=== PATIENT | female | born 1960 | race Asian ===

== ENCOUNTER 2018-02-03 13:11 | Emergency (ER) | payer MEDICAID ==
[~2018-02-03] VITALS: Ht 162.6 cm; Wt 70.0 kg
[~2018-02-03 13:11] MED LIST: CIPR-259 PO; CYCL-1 PO; FERGLU300T PO; GABA300C PO; ONDA4TAB6 PO; depo-provera PO
[2018-02-03] MEDS ORDERED: normal saline 1000ML IV soln IVB ONE (13:30)
[2018-02-03] MEDS ORDERED: MORPHINE 2MG in 2ml NS syringe IV PRN (13:30)
[2018-02-03] MEDS ORDERED: ketorolac trometh. 30mg/ml inj. IV ONE (13:30)
[2018-02-03] MEDS ORDERED: ondansetron/PF 4mg/2ml inj IV ONE (13:30)
[2018-02-03 13:51] LABS: BASOPHILS % (AUTO) 0.2 % (0-1); EOSINOPHILS # (AUTO) 0.2 X10'3 (0-0.9); EOSINOPHILS % (AUTO) 1.9 % (0-6); HEMATOCRIT 36.3 % (35.0-45.0); HEMOGLOBIN 12.9 g/dl (12.0-16.0); LYMPHOCYTES # (AUTO) 2.4 X10'3 (1.1-4.8); LYMPHOCYTES % (AUTO) 21.2 % (21-51); MEAN CORPUSCULAR HEMOGLOBIN 29.9 PG (27.0-31.0); MEAN CORPUSCULAR HGB CONC 35.6 % (33.0-36.5); MEAN CORPUSCULAR VOLUME 84.1 FL (78-98); MEAN PLATELET VOLUME 7.2 FL (7.4-10.4); MONOCYTES # (AUTO) 0.9 X10'3 (0-0.9); MONOCYTES % (AUTO) 7.8 % (2-12); NEUTROPHILS # (AUTO) 7.7 X10'3 (1.8-7.7); NEUTROPHILS % (AUTO) 68.9 % (42-75); PLATELET COUNT 321 X10'3 (140-440); RED BLOOD COUNT 4.31 X10'6 (4.20-5.60); RED CELL DISTRIBUTION WIDTH 13.5 % (11.5-14.5); WHITE BLOOD COUNT 11.1 X10'3 (4.5-11.0)
[2018-02-03 14:07] LABS: ALANINE AMINOTRANSFERASE 31 U/L (12-78); ALBUMIN 3.7 G/DL (3.4-5.0); ALBUMIN/GLOBULIN RATIO 0.9 (1.1-1.5); ALKALINE PHOSPHATASE 111 IU/L (46-116); ANION GAP 12 (8-16); ASPARTATE AMINO TRANSFERASE 30 U/L (10-37); BILIRUBIN,TOTAL 0.5 MG/DL (0.1-1.0); BLOOD UREA NITROGEN 14 MG/DL (7-18); BUN/CREATININE RATIO 14.4 (6.6-38.0); CALCIUM 9.2 MG/DL (8.5-10.1); CHLORIDE 102 MMOL/L (99-107); CREATININE 0.97 MG/DL (0.40-0.90); GLUCOSE 157 MG/DL (70-104); LIPASE 262 U/L (73-393); POTASSIUM 3.1 MMOL/L (3.5-5.1); SODIUM 141 MMOL/L (135-145); TOTAL CARBON DIOXIDE 26.7 MMOL/L (24-32); TOTAL PROTEIN 7.9 G/DL (6.4-8.2); eGFR 59 ML/MIN
[2018-02-03 14:08] LABS: CLARITY,URINE SLIGHTLY CLOUDY (Clear); COLOR,URINE YELLOW (Yellow); GLUCOSE, URINE NEGATIVE (Neg); KETONES,URINE TRACE mg/dl (Neg); LEUKOCYTE ESTERASE ,URINE NEGATIVE (Neg); NITRITES, URINE NEGATIVE (Neg); OCCULT BLOOD,URINE NEGATIVE (Neg); PH,URINE 5.5 (4.8-8.0); PROTEIN,URINE NEGATIVE (Neg); UROBILINOGEN,URINE 0.2 E.U/dL (0.2-1.0)
[2018-02-03 14:10] LABS: UA COLLECTION TYPE CLN CATCH MIDSTREAM
[2018-02-03 14:15] LABS: BACTERIA,URINE FEW /HPF (Neg); MUCUS STRANDS MODERATE /LPF (Neg); RBC,URINE 0-2 /HPF (0-2); SQUAMOUS EPITHELIAL CELL,UR MODERATE /LPF (FEW); WBC,URINE 0-4 /HPF (0-4)
[2018-02-03] MEDS ORDERED: HYDR-569 PO (14:57)
[2018-02-03 16:11] VITALS: BP 145/84
[2018-02-04] MEDS ORDERED: CYCL-1 PO (15:45)
[2018-02-04] MEDS ORDERED: HYDR-3965 PO (15:45)
[2018-02-04] MEDS ORDERED: ONDA4TAB12 PO (15:48)
== END 2018-02-03 16:12 | disposition home or self-care (01) ==
LOC: ER 13:12
DX: R10.32 Left lower quadrant pain (principal); R11.0 Nausea; I10 Essential (primary) hypertension; E11.9 Type 2 diabetes mellitus without complications; Z90.710 Acquired absence of both cervix and uterus
CPT/HCPCS: 36415; 74176; 80053; 81001; 83690; 85025; 96361; 96374; 96375; 99285; J1885; J2274; J7030

== ENCOUNTER 2018-02-04 11:29 | Emergency (ER) | payer MEDICAID ==
[~2018-02-04] VITALS: Ht 154.9 cm; Wt 60.0 kg
[~2018-02-04 11:29] MED LIST changes: +HYDR-569 PO
[2018-02-04 12:01] LABS: CLARITY,URINE CLEAR (Clear); COLOR,URINE YELLOW (Yellow); GLUCOSE, URINE NEGATIVE (Neg); KETONES,URINE 15 mg/dl (Neg); LEUKOCYTE ESTERASE ,URINE NEGATIVE (Neg); NITRITES, URINE NEGATIVE (Neg); OCCULT BLOOD,URINE NEGATIVE (Neg); PH,URINE 5.5 (4.8-8.0); PROTEIN,URINE TRACE mg/dl (Neg); UROBILINOGEN,URINE 0.2 E.U/dL (0.2-1.0)
[2018-02-04 12:06] LABS: UA COLLECTION TYPE CLN CATCH MIDSTREAM
[2018-02-04 12:07] LABS: BACTERIA,URINE NONE SEEN /HPF (Neg); MUCUS STRANDS FEW /LPF (Neg); RBC,URINE NONE SEEN /HPF (0-2); SQUAMOUS EPITHELIAL CELL,UR FEW /LPF (FEW); WBC,URINE 0-4 /HPF (0-4)
[2018-02-04 12:10] LABS: BASOPHILS # (AUTO) 0.1 X10'3 (0-0.2); BASOPHILS % (AUTO) 0.4 % (0-1); EOSINOPHILS % (AUTO) 0.3 % (0-6); HEMATOCRIT 39.5 % (35.0-45.0); HEMOGLOBIN 13.4 g/dl (12.0-16.0); LYMPHOCYTES # (AUTO) 1.7 X10'3 (1.1-4.8); LYMPHOCYTES % (AUTO) 10.7 % (21-51); MEAN CORPUSCULAR HEMOGLOBIN 29.4 PG (27.0-31.0); MEAN CORPUSCULAR VOLUME 86.4 FL (78-98); MEAN PLATELET VOLUME 7.4 FL (7.4-10.4); MONOCYTES # (AUTO) 0.8 X10'3 (0-0.9); NEUTROPHILS # (AUTO) 13.1 X10'3 (1.8-7.7); NEUTROPHILS % (AUTO) 83.6 % (42-75); PLATELET COUNT 353 X10'3 (140-440); RED BLOOD COUNT 4.58 X10'6 (4.20-5.60); RED CELL DISTRIBUTION WIDTH 13.4 % (11.5-14.5); WHITE BLOOD COUNT 15.7 X10'3 (4.5-11.0)
[2018-02-04 12:24] LABS: ALANINE AMINOTRANSFERASE 34 U/L (12-78); ALBUMIN 3.5 G/DL (3.4-5.0); ALBUMIN/GLOBULIN RATIO 0.8 (1.1-1.5); ALKALINE PHOSPHATASE 105 IU/L (46-116); ANION GAP 10 (8-16); ASPARTATE AMINO TRANSFERASE 26 U/L (10-37); BILIRUBIN,TOTAL 0.7 MG/DL (0.1-1.0); BLOOD UREA NITROGEN 12 MG/DL (7-18); BUN/CREATININE RATIO 12.8 (6.6-38.0); CALCIUM 8.8 MG/DL (8.5-10.1); CHLORIDE 100 MMOL/L (99-107); CREATININE 0.94 MG/DL (0.40-0.90); GLUCOSE 224 MG/DL (70-104); POTASSIUM 3.4 MMOL/L (3.5-5.1); SODIUM 139 MMOL/L (135-145); TOTAL CARBON DIOXIDE 29.5 MMOL/L (24-32); eGFR 62 ML/MIN
[2018-02-04] MEDS ORDERED: cyclobenzaprine 10mg tablet PO ONE (14:45)
[2018-02-04] MEDS ORDERED: HYDROcodone/acetaminophen 10/325mg tab PO ONE (14:45)
[2018-02-04] MEDS ORDERED: ketorolac tromethamine 15mg/ml inj. IM ONE (14:45)
[2018-02-04] MEDS ORDERED: HYDR-3965 PO (15:45)
[2018-02-04] MEDS ORDERED: CYCL-1 PO (15:45)
[2018-02-04] MEDS ORDERED: ONDA4TAB12 PO (15:48)
[2018-02-04 16:02] VITALS: BP 111/74
[2018-02-04 16:31] LABS: OCCULT BLOOD STOOL POSITIVE (Neg)
== END 2018-02-04 16:36 | disposition home or self-care (01) ==
LOC: ER 11:29
DX: S29.019A Strain of muscle and tendon of unspecified wall of thorax, initial encounter (principal); I10 Essential (primary) hypertension; E11.9 Type 2 diabetes mellitus without complications; Z90.710 Acquired absence of both cervix and uterus
CPT/HCPCS: 36415; 71101; 80053; 81001; 82272; 85025; 85610; 96372; 99285; J1885

== ENCOUNTER 2021-01-24 13:35 | Inpatient (IN) | payer MEDICAID ==
[~2021-01-24] VITALS: Ht 154.9 cm; Wt 60.3 kg
[~2021-01-24 13:35] MED LIST changes: -FERGLU300T PO; +FERR324T23 PO; +HYDR-4383 PO; -HYDR-569 PO; +ONDA4TAB12 PO
[2021-01-24] MEDS ORDERED: normal saline 1000ML IV soln IVB ONE (14:10)
[2021-01-24] MEDS ORDERED: ondansetron/PF 4mg/2ml inj IV ONE (14:10)
[2021-01-24] MEDS ORDERED: morphine 4 MG/ML inj SYRINge IV ONE (14:10)
[2021-01-24 15:03] LABS: BASOPHILS % (AUTO) 0.2 % (0-1); EOSINOPHILS % (AUTO) 0.3 % (0-6); HEMATOCRIT 41.8 % (35.0-45.0); HEMOGLOBIN 13.9 g/dl (12.0-16.0); LYMPHOCYTES # (AUTO) 2.9 X10'3 (1.1-4.8); LYMPHOCYTES % (AUTO) 19.3 % (21-51); MEAN CORPUSCULAR HEMOGLOBIN 29.1 PG (27.0-31.0); MEAN CORPUSCULAR HGB CONC 33.2 g/dL (33.0-36.5); MEAN CORPUSCULAR VOLUME 87.5 FL (78-98); MONOCYTES # (AUTO) 1.4 X10'3 (0-0.9); MONOCYTES % (AUTO) 9.3 % (2-12); NEUTROPHILS # (AUTO) 10.6 X10'3 (1.8-7.7); NEUTROPHILS % (AUTO) 70.9 % (42-75); PLATELET COUNT 296 X10'3 (140-440); RED BLOOD COUNT 4.77 X10'6 (4.20-5.60); RED CELL DISTRIBUTION WIDTH 13.6 % (11.5-14.5); WHITE BLOOD COUNT 14.9 X10'3 (4.5-11.0)
[2021-01-24 15:21] LABS: ALANINE AMINOTRANSFERASE 34 U/L (12-78); ALBUMIN 3.9 G/DL (3.4-5.0); ALBUMIN/GLOBULIN RATIO 0.9 (1.1-1.5); ALKALINE PHOSPHATASE 131 IU/L (46-116); ANION GAP 14 (8-16); ASPARTATE AMINO TRANSFERASE 34 U/L (10-37); BILIRUBIN,TOTAL 0.3 MG/DL (0.1-1.0); BLOOD UREA NITROGEN 23 MG/DL (7-18); BUN/CREATININE RATIO 25.3 (6.6-38.0); CALCIUM 9.3 MG/DL (8.5-10.1); CHLORIDE 101 MMOL/L (99-107); CREATININE 0.91 MG/DL (0.40-0.90); GLUCOSE 191 MG/DL (70-104); SODIUM 142 MMOL/L (135-145); TOTAL CARBON DIOXIDE 26.7 MMOL/L (24-32); TOTAL PROTEIN 8.4 G/DL (6.4-8.2); eGFR 63 ML/MIN
[2021-01-24 15:24] LABS: POTASSIUM 2.4 MMOL/L (3.5-5.1)
[2021-01-24] MEDS ORDERED: potassium Cl 10 mEq/100mL bag IV SCH ×2 (15:30→17:55)
[2021-01-24] MEDS ORDERED: potassium Cl 20 mEq SR tablet PO ONE (15:30)
[2021-01-24] MEDS ORDERED: metroNIDAZOLE-Flagyl 500mg/NS 100 ML IV STA ×2 (15:44→17:13)
[2021-01-24] MEDS ORDERED: METR500T PO (15:53)
[2021-01-24] MEDS ORDERED: POTA-82 PO (15:53)
[2021-01-24 16:40] LABS: CLARITY,URINE CLEAR (Clear); COLOR,URINE STRAW (Yellow); GLUCOSE, URINE 250 mg/dl (Neg); KETONES,URINE TRACE mg/dl (Neg); LEUKOCYTE ESTERASE ,URINE NEGATIVE (Neg); NITRITES, URINE NEGATIVE (Neg); OCCULT BLOOD,URINE NEGATIVE (Neg); PROTEIN,URINE 30 mg/dl (Neg); UROBILINOGEN,URINE 0.2 E.U/dL (0.2-1.0)
[2021-01-24 16:45] LABS: UA COLLECTION TYPE CLN CATCH MIDSTREAM
[2021-01-24 16:47] LABS: BACTERIA,URINE NONE SEEN /HPF (Neg); COARSE GRANULAR CAST 0-3 /LPF (NEGATIVE); MUCUS STRANDS NONE SEEN /LPF (Neg); RBC,URINE NONE SEEN /HPF (0-2); SQUAMOUS EPITHELIAL CELL,UR NONE SEEN /LPF (FEW); WBC,URINE 0-4 /HPF (0-4)
[2021-01-24] MEDS ORDERED: hydrALAZINE 20mg/ml inj. IV ONE (17:30)
--- NOTE | 2021-01-24 17:42 | NUR ---
HIRAM MARCOS AND NOW DR LOPEZ IN ROOM
--- NOTE | 2021-01-24 17:54 | NUR ---
CALLED PHARMACY TO RETIME IV POTASSIUM IN ORDER TO BE ABLE TO GIVE IT
[2021-01-24] MEDS ORDERED: potassium Cl 40MEQ/1/2NS 520ml 520 ML IV PRN ×2 (18:00)
[2021-01-24] MEDS ORDERED: hydrALAZINE 20mg/ml inj. IV PRN (18:00)
[2021-01-24] MEDS ORDERED: magnesium hydroxide 30ml (MOM) UD suspension PO PRN (18:00)
[2021-01-24] MEDS ORDERED: acetaminophen 325mg tablet PO PRN (18:00)
[2021-01-24] MEDS ORDERED: magnesium 2GM in 50ml NS 50 ML IV PRN (18:00)
[2021-01-24] MEDS ORDERED: potassium Cl 20 mEq SR tablet PO PRN (18:00)
[2021-01-24] MEDS ORDERED: magnesium 4gm in 100ml NS 100 ML IV PRN (18:00)
[2021-01-24] MEDS ORDERED: ondansetron/PF 4mg/2ml inj IV PRN (18:00)
[2021-01-24] MEDS ORDERED: mag hydrox/Alum hydrox/simeth 30ml oral suspension PO PRN (18:00)
[2021-01-24] MEDS ORDERED: IBUP-1985 PO (18:01)
[2021-01-24] MEDS ORDERED: METF-438 PO (18:01)
[2021-01-24] MEDS ORDERED: glucagon, human recombinant 1mg kit SUBCUT PRN (18:20)
[2021-01-24] MEDS ORDERED: dextrose ORAL solution 15 GM/59 ML bottle PO PRN ×2 (18:20)
[2021-01-24] MEDS ORDERED: MESSAGE TO PHARMACY PO ONE (18:20)
[2021-01-24] MEDS ORDERED: dextrose 50%-water 50ml dispensing syringe IV PRN ×2 (18:20)
[2021-01-24] MEDS: potassium Cl 20mEq in NS 1,000 ML IV SCH ×2 (18:57→20:10)
[2021-01-24 19:00] VITALS: BP 149/75
--- NOTE | 2021-01-24 19:12 | NUR ---
phone report to barney brown. rn aware that insulin is being sent by pharmacy to ortho: jen sugar [address] and glenroy did not eat her clear liquid dinner because it did not arrive: she is due 4 units of correctional insulin, pharmacy is also sending her iv cipro
--- NOTE | 2021-01-24 19:16 | NUR ---
REPORT RECEIVED FROM CHAITANYA ARREDONDO IN ER. PATIENT ON THE WAY TO THE UNIT.
--- NOTE | 2021-01-24 19:38 | NUR ---
PATIENT IS ARRIVED ON THE UNIT WITH HER BY HER BEDSIDE. SHE IS COMPLAINING OF ABDOMINAL PAIN. WILL CONTINUE TO MONITOR.
[2021-01-24] MEDS: ciprofloxacin lact 400MG/200ML 200 ML IV SCH (20:00)
[2021-01-24] MEDS: K and/or MAG REPLACEMENT MC SCH (20:00)
[2021-01-24] MEDS: enoxaparin 40mg/0.4ml syringe SQ SCH (20:05)
[2021-01-24] MEDS: insulin Lispro (HumaLOG) vial - multi-dose SQ SCH (20:09)
[2021-01-24] MEDS: morphine 2 MG/ML inj. syringe IV PRN (20:44)
--- NOTE | 2021-01-24 20:47 | NUR ---
Tried calling Dr. Wills regarding critical result of lactic at 5.1; I already had paged her once we got the result earlier. No call back from page and voice mail is full per recording.
--- NOTE | 2021-01-24 21:25 | NUR ---
Dr. Wills called back regarding critical lactic level of 5.1 that I had paged her and called about before, She said since patient has ivf's going at 100/hr that patient did not need anything else at this time.
[2021-01-24] MEDS: insulin glargine (Lantus) pen - multi-dose SQ SCH (21:37)
[2021-01-24 22:00] VITALS: BP 113/63
[2021-01-24] MEDS: potassium Cl 20 mEq SR tablet PO PRN (23:06)
[2021-01-24] MEDS ORDERED: normal saline 1000ml 1,000 ML IVB ONE (23:20)
--- NOTE | 2021-01-24 23:22 | NUR ---
To give 1025ml's total of NS per septic core measure for lactic >2, her repeat lactic was 7.[address] Wills said to give fluid bolus per protocol. Give fluids per 30ml's per kg, she is 60.3 kg's so total of 1025.18 ml's to be given of NS.
[2021-01-25] MEDS: metroNIDAZOLE-Flagyl 500mg/NS 100 ML IV SCH ×4 (00:29→23:53)
--- NOTE | 2021-01-25 01:18 | NUR ---
It should be a total of 1809 ml's fluid bolus for the elevated latic/sepsis core measure so she needs 784 ml's more ivf's of saline.
[2021-01-25] MEDS ORDERED: normal saline 1000ml 1,000 ML IV ONE (01:20)
[2021-01-25] MEDS ORDERED: normal saline 1000ml 1,000 ML IVB ONE (01:20)
[2021-01-25] MEDS: potassium Cl 20 mEq SR tablet PO PRN (03:52)
[2021-01-25] MEDS: potassium Cl 20mEq in NS 1,000 ML IV SCH ×2 (05:38→15:11)
[2021-01-25 06:00] VITALS: BP 143/72
--- NOTE | 2021-01-25 06:25 | NUR ---
Problems reprioritized. Patient report given, questions answered & plan of care reviewed with CLARITY RN.
[2021-01-25 07:22] LABS: BASOPHILS % (AUTO) 0.1 % (0-1); EOSINOPHILS % (AUTO) 0 % (0-6); HEMATOCRIT 36.9 % (35.0-45.0); HEMOGLOBIN 12.4 g/dl (12.0-16.0); MEAN CORPUSCULAR HGB CONC 33.5 g/dL (33.0-36.5); MEAN CORPUSCULAR VOLUME 86.5 FL (78-98); MONOCYTES # (AUTO) 1.3 X10'3 (0-0.9); MONOCYTES % (AUTO) 6.1 % (2-12); NEUTROPHILS # (AUTO) 18.7 X10'3 (1.8-7.7); NEUTROPHILS % (AUTO) 84.8 % (42-75); PLATELET COUNT 265 X10'3 (140-440); RED BLOOD COUNT 4.27 X10'6 (4.20-5.60); RED CELL DISTRIBUTION WIDTH 13.8 % (11.5-14.5)
[2021-01-25 08:09] LABS: ALANINE AMINOTRANSFERASE 26 U/L (12-78); ALBUMIN 2.9 G/DL (3.4-5.0); ALBUMIN/GLOBULIN RATIO 0.8 (1.1-1.5); ALKALINE PHOSPHATASE 88 IU/L (46-116); ANION GAP 11 (8-16); ASPARTATE AMINO TRANSFERASE 29 U/L (10-37); BILIRUBIN,TOTAL 0.7 MG/DL (0.1-1.0); BLOOD UREA NITROGEN 17 MG/DL (7-18); BUN/CREATININE RATIO 21.5 (6.6-38.0); CALCIUM 7.8 MG/DL (8.5-10.1); CHLORIDE 105 MMOL/L (99-107); CREATININE 0.79 MG/DL (0.40-0.90); GLUCOSE 203 MG/DL (70-104); MAGNESIUM 1.5 MG/DL (1.5-2.4); POTASSIUM 3.7 MMOL/L (3.5-5.1); SODIUM 139 MMOL/L (135-145); TOTAL CARBON DIOXIDE 22.8 MMOL/L (24-32); TOTAL PROTEIN 6.6 G/DL (6.4-8.2); eGFR 74 ML/MIN
[2021-01-25] MEDS: ciprofloxacin lact 400MG/200ML 200 ML IV SCH ×2 (08:23→19:12)
[2021-01-25] MEDS: K and/or MAG REPLACEMENT MC SCH ×2 (08:52→19:16)
[2021-01-25] MEDS: insulin Lispro (HumaLOG) vial - multi-dose SQ SCH ×3 (09:24→19:16)
[2021-01-25 10:00] VITALS: BP 162/96
[2021-01-25] MEDS: morphine 2 MG/ML inj. syringe IV PRN (12:14)
--- NOTE | 2021-01-25 15:13 | NUR ---
DM consult: Pt with A1c 7.2%, would benefit from DM education once stable. Addendum: 01/25/21 at [address] Amended: Links added.
--- NOTE | 2021-01-25 15:59 | NUR ---
SON HERE AND CODE STATUS WAS CLARIFIED BY DR LOPEZ, CODE STATUS CHANGED TO FULL CODE.
[2021-01-25] MEDS ORDERED: lisinopril 10 MG tablet PO ONE (16:05)
[2021-01-25 18:00] VITALS: BP 161/78
--- NOTE | 2021-01-25 18:26 | NUR ---
Patient in room [facility]015. I have received report from ARNULFO Kingsley and had the opportunity to ask questions and assume patient care.
[2021-01-25] MEDS: enoxaparin 40mg/0.4ml syringe SQ SCH (19:13)
[2021-01-25] MEDS: lactobacillus rhamnosus 10,000 MMU CELLS/CAPSULE PO SCH (19:13)
[2021-01-25] MEDS: insulin glargine (Lantus) pen - multi-dose SQ SCH (21:09)
[2021-01-25 22:00] VITALS: BP 131/71
[2021-01-26] MEDS: potassium Cl 20mEq in NS 1,000 ML IV SCH ×3 (03:21→23:17)
[2021-01-26 06:00] VITALS: BP 157/67
--- NOTE | 2021-01-26 06:15 | NUR ---
RECEIVED REPORT FROM ARNULFO MOSES
--- NOTE | 2021-01-26 06:46 | NUR ---
Problems reprioritized. Patient report given, questions answered & plan of care reviewed with ARNULFO Crews.
[2021-01-26 07:13] LABS: BASOPHILS % (AUTO) 0.3 % (0-1); EOSINOPHILS # (AUTO) 0.2 X10'3 (0-0.9); EOSINOPHILS % (AUTO) 1.1 % (0-6); HEMATOCRIT 36.5 % (35.0-45.0); HEMOGLOBIN 12.3 g/dl (12.0-16.0); LYMPHOCYTES # (AUTO) 2.6 X10'3 (1.1-4.8); LYMPHOCYTES % (AUTO) 15.1 % (21-51); MEAN CORPUSCULAR HEMOGLOBIN 29.5 PG (27.0-31.0); MEAN CORPUSCULAR HGB CONC 33.6 g/dL (33.0-36.5); MEAN CORPUSCULAR VOLUME 87.9 FL (78-98); MEAN PLATELET VOLUME 8.2 FL (7.4-10.4); MONOCYTES # (AUTO) 1.1 X10'3 (0-0.9); MONOCYTES % (AUTO) 6.4 % (2-12); NEUTROPHILS # (AUTO) 13.2 X10'3 (1.8-7.7); NEUTROPHILS % (AUTO) 77.1 % (42-75); PLATELET COUNT 244 X10'3 (140-440); RED BLOOD COUNT 4.15 X10'6 (4.20-5.60); RED CELL DISTRIBUTION WIDTH 13.9 % (11.5-14.5); WHITE BLOOD COUNT 17.2 X10'3 (4.5-11.0)
[2021-01-26 07:24] LABS: ALANINE AMINOTRANSFERASE 23 U/L (12-78); ALBUMIN 2.6 G/DL (3.4-5.0); ALBUMIN/GLOBULIN RATIO 0.7 (1.1-1.5); ALKALINE PHOSPHATASE 79 IU/L (46-116); ANION GAP 8 (8-16); ASPARTATE AMINO TRANSFERASE 22 U/L (10-37); BILIRUBIN,TOTAL 0.7 MG/DL (0.1-1.0); BLOOD UREA NITROGEN 12 MG/DL (7-18); BUN/CREATININE RATIO 15.8 (6.6-38.0); CALCIUM 8.3 MG/DL (8.5-10.1); CHLORIDE 109 MMOL/L (99-107); CREATININE 0.76 MG/DL (0.40-0.90); GLUCOSE 135 MG/DL (70-104); MAGNESIUM 1.7 MG/DL (1.5-2.4); POTASSIUM 3.9 MMOL/L (3.5-5.1); SODIUM 142 MMOL/L (135-145); TOTAL CARBON DIOXIDE 24.6 MMOL/L (24-32); TOTAL PROTEIN 6.3 G/DL (6.4-8.2); eGFR 78 ML/MIN
[2021-01-26] MEDS: lactobacillus rhamnosus 10,000 MMU CELLS/CAPSULE PO SCH ×2 (07:32→19:58)
[2021-01-26] MEDS: lisinopril 20mg tablet PO SCH (07:32)
[2021-01-26] MEDS: ciprofloxacin lact 400MG/200ML 200 ML IV SCH ×2 (07:35→19:52)
[2021-01-26] MEDS: K and/or MAG REPLACEMENT MC SCH ×2 (07:38→20:00)
[2021-01-26] MEDS: morphine 2 MG/ML inj. syringe IV PRN (08:44)
[2021-01-26] MEDS: metroNIDAZOLE-Flagyl 500mg/NS 100 ML IV SCH ×2 (08:49→15:48)
--- NOTE | 2021-01-26 09:00 | NUR ---
pt decided to eat very little breakfast, therefore w/her bg at 116 pt will not receive insulin this morning, continue to monitor
[2021-01-26 10:00] VITALS: BP 132/70
--- NOTE | 2021-01-26 12:24 | NUR ---
Initial: Pt admit DX sepsis, infectious colitis, uncontrolled HTN, leukocytosis, and acute renal failure likely r/t dehydration per EMR. Hx T2DM A1c 7.2%, written DM ed w/ RD contact information placed in pt chart. Pt hx constipation w/ only "small ball" BM's [employer] and CT showing retained stool this admit per EMR. PO 100% clear liquid dinner last night w/ 0% breakfast this AM and meals prior to dinner yesterday not meeting needs. Will monitor for diet advancement, PO tolerance, and ONS needs this admit. Rec: 1. advance diet as medically indicated to carb controlled 2. monitor for ONS needs 3. routine bowel care; retained stool per CT in EMR 4. weekly wts Addendum: 01/26/21 at [address] Amended: Links added.
[2021-01-26] MEDS: insulin Lispro (HumaLOG) vial - multi-dose SQ SCH (13:16)
[2021-01-26 18:00] VITALS: BP 148/78
--- NOTE | 2021-01-26 18:12 | NUR ---
gave report to stephanie aguilar
[2021-01-26] MEDS: enoxaparin 40mg/0.4ml syringe SQ SCH (19:59)
[2021-01-26] MEDS: insulin glargine (Lantus) pen - multi-dose SQ SCH (21:24)
[2021-01-26 22:00] VITALS: BP 140/73
[2021-01-27] MEDS: metroNIDAZOLE-Flagyl 500mg/NS 100 ML IV SCH ×2 (00:52→08:11)
[2021-01-27] MEDS: potassium Cl 20mEq in NS 1,000 ML IV SCH ×2 (04:00→08:11)
--- NOTE | 2021-01-27 06:40 | NUR ---
Patient in room [facility]. I have received report from Sowmya ARREDONDO and had the opportunity to ask questions and assume patient care.
[2021-01-27 06:56] LABS: BASOPHILS % (AUTO) 0.3 % (0-1); EOSINOPHILS # (AUTO) 0.3 X10'3 (0-0.9); EOSINOPHILS % (AUTO) 2.4 % (0-6); HEMATOCRIT 37.6 % (35.0-45.0); HEMOGLOBIN 12.4 g/dl (12.0-16.0); LYMPHOCYTES # (AUTO) 2.8 X10'3 (1.1-4.8); LYMPHOCYTES % (AUTO) 22.3 % (21-51); MEAN CORPUSCULAR HEMOGLOBIN 29.2 PG (27.0-31.0); MEAN CORPUSCULAR HGB CONC 32.9 g/dL (33.0-36.5); MEAN CORPUSCULAR VOLUME 88.9 FL (78-98); MEAN PLATELET VOLUME 8.1 FL (7.4-10.4); MONOCYTES # (AUTO) 0.8 X10'3 (0-0.9); MONOCYTES % (AUTO) 6.1 % (2-12); NEUTROPHILS # (AUTO) 8.5 X10'3 (1.8-7.7); NEUTROPHILS % (AUTO) 68.9 % (42-75); PLATELET COUNT 262 X10'3 (140-440); RED BLOOD COUNT 4.23 X10'6 (4.20-5.60); RED CELL DISTRIBUTION WIDTH 13.9 % (11.5-14.5); WHITE BLOOD COUNT 12.3 X10'3 (4.5-11.0)
[2021-01-27 07:00] VITALS: BP 178/89
[2021-01-27 07:07] LABS: ALANINE AMINOTRANSFERASE 19 U/L (12-78); ALBUMIN 2.7 G/DL (3.4-5.0); ALBUMIN/GLOBULIN RATIO 0.7 (1.1-1.5); ALKALINE PHOSPHATASE 83 IU/L (46-116); ANION GAP 9 (8-16); ASPARTATE AMINO TRANSFERASE 23 U/L (10-37); BILIRUBIN,TOTAL 0.7 MG/DL (0.1-1.0); BLOOD UREA NITROGEN 9 MG/DL (7-18); CALCIUM 8.6 MG/DL (8.5-10.1); CHLORIDE 108 MMOL/L (99-107); CREATININE 0.75 MG/DL (0.40-0.90); GLUCOSE 132 MG/DL (70-104); MAGNESIUM 1.8 MG/DL (1.5-2.4); POTASSIUM 3.7 MMOL/L (3.5-5.1); SODIUM 143 MMOL/L (135-145); TOTAL CARBON DIOXIDE 26.5 MMOL/L (24-32); TOTAL PROTEIN 6.7 G/DL (6.4-8.2); eGFR 79 ML/MIN
[2021-01-27] MEDS: ciprofloxacin lact 400MG/200ML 200 ML IV SCH (08:11)
[2021-01-27] MEDS: lactobacillus rhamnosus 10,000 MMU CELLS/CAPSULE PO SCH (08:11)
[2021-01-27] MEDS: K and/or MAG REPLACEMENT MC SCH (08:12)
[2021-01-27] MEDS: lisinopril 20mg tablet PO SCH (08:12)
--- NOTE | 2021-01-27 10:00 | NUR ---
Patient was not given insulin due to consuming zero carbs and correctional dose not being needed. BG-123
[2021-01-27 11:00] VITALS: BP 188/100
[2021-01-27 11:18] VITALS: BP 157/91
[2021-01-27] MEDS ORDERED: CIPR-202 PO (13:18)
[2021-01-27] MEDS ORDERED: METR500T PO (13:19)
--- NOTE | 2021-01-27 13:25 | NUR ---
Patient was not given insulin due to consuming zero carbs and correctional dose not being needed. BG-117
[2021-01-27 15:00] VITALS: BP 168/87
[2021-01-27] MEDS ORDERED: metroNIDAZOLE 500mg tablet PO SCH (16:00)
[2021-01-27] MEDS ORDERED: LISI10TA27 PO (16:08)
--- NOTE | 2021-01-27 17:32 | NUR ---
Patient was educated on follow up care, worsening symptoms, and diabetes education. IV was removed and canula intact. Patient was taken to the front to
[2021-01-27] MEDS ORDERED: ciprofloxacin 250mg tablet PO SCH (22:00)
== END 2021-01-27 17:30 | disposition home or self-care (01) | DRG 720 ==
LOC: ER 13:35 → ED HOLD 17:57 → EDBEDREQ 18:48 → ORTHO 4S 19:30
PROVIDERS: ADMIT Family Medicine; ATTEND Family Medicine
DX: A41.9 Sepsis, unspecified organism (principal); A09 Infectious gastroenteritis and colitis, unspecified; E11.9 Type 2 diabetes mellitus without complications; E87.6 Hypokalemia; I10 Essential (primary) hypertension; Z66 Do not resuscitate; K59.00 Constipation, unspecified; Z79.84 Long term (current) use of oral hypoglycemic drugs; Z90.710 Acquired absence of both cervix and uterus; Z79.899 Other long term (current) drug therapy
CPT/HCPCS: 36415; 74176; 80053; 81001; 82948; 83036; 83605; 83735; 84132; 84145; 85025; 87040; 87081; 93005; 97161; 97530; 99285; G0378; J0360; J0744; J1650; J1815; J2270; J2405; J3480; J3490; J7030

== ENCOUNTER 2024-01-30 21:18 | Emergency (ER) | payer MEDICAID ==
[~2024-01-30] VITALS: Ht 152.4 cm; Wt 59.1 kg
[~2024-01-30 21:18] MED LIST changes: -CIPR-259 PO; -CYCL-1 PO; -FERR324T23 PO; -GABA300C PO; -HYDR-4383 PO; +IBUP-1985 PO; +LISI10TA27 PO; +METF-438 PO; -ONDA4TAB12 PO; -ONDA4TAB6 PO; -depo-provera PO
[2024-01-30 23:55] LABS: BILIRUBIN,URINE NEGATIVE (Neg); CLARITY,URINE CLEAR (Clear); COLOR,URINE YELLOW (Yellow); GLUCOSE, URINE 100 mg/dl (Neg); KETONES,URINE NEGATIVE (Neg); LEUKOCYTE ESTERASE ,URINE NEGATIVE (Neg); NITRITES, URINE NEGATIVE (Neg); OCCULT BLOOD,URINE NEGATIVE (Neg); PROTEIN,URINE NEGATIVE (Neg); UROBILINOGEN,URINE 0.2 E.U/dL (0.2-1.0)
[2024-01-31] LABS: UA COLLECTION TYPE NON-SPECIFIED
[2024-01-31 00:01] LABS: BASOPHILS % (AUTO) 0.2 % (0-1); EOSINOPHILS # (AUTO) 0.1 X10'3 (0-0.9); EOSINOPHILS % (AUTO) 0.7 % (0-6); HEMATOCRIT 38.8 % (35.0-45.0); LYMPHOCYTES # (AUTO) 1.5 X10'3 (1.1-4.8); LYMPHOCYTES % (AUTO) 8.5 % (21-51); MEAN CORPUSCULAR HEMOGLOBIN 29.3 PG (27.0-31.0); MEAN CORPUSCULAR HGB CONC 33.6 g/dL (33.0-36.5); MEAN CORPUSCULAR VOLUME 87.2 FL (78-98); MEAN PLATELET VOLUME 7.6 FL (7.4-10.4); MONOCYTES # (AUTO) 1.6 X10'3 (0-0.9); MONOCYTES % (AUTO) 9.3 % (2-12); NEUTROPHILS # (AUTO) 13.9 X10'3 (1.8-7.7); NEUTROPHILS % (AUTO) 81.3 % (42-75); PLATELET COUNT 268 X10'3 (140-440); RED BLOOD COUNT 4.45 X10'6 (4.20-5.60); RED CELL DISTRIBUTION WIDTH 13.7 % (11.5-14.5)
[2024-01-31 00:20] LABS: ALANINE AMINOTRANSFERASE 19 U/L (12-78); ALBUMIN 3.5 G/DL (3.4-5.0); ALBUMIN/GLOBULIN RATIO 0.8 (1.1-1.5); ALKALINE PHOSPHATASE 118 IU/L (46-116); ANION GAP 10 (8-16); ASPARTATE AMINO TRANSFERASE 22 U/L (10-37); BILIRUBIN,TOTAL 0.5 MG/DL (0.1-1.0); BLOOD UREA NITROGEN 22 MG/DL (7-18); BUN/CREATININE RATIO 18.3 (10.0-20.0); CALCIUM 8.8 MG/DL (8.5-10.1); CHLORIDE 101 MMOL/L (99-107); GLUCOSE 237 MG/DL (70-104); LIPASE 80 U/L (16-77); POTASSIUM 3.3 MMOL/L (3.5-5.1); SODIUM 138 MMOL/L (135-145); TOTAL CARBON DIOXIDE 27.1 MMOL/L (24-32); TOTAL PROTEIN 7.9 G/DL (6.4-8.2); eCRCL 35 ML/MIN; eGFR 46 ML/MIN
[2024-01-31] MEDS: piperacillin/tazo 4.5gm/100ml 100 ML IV ONE (05:23)
[2024-01-31] MEDS: piperacillin/tazo 4.5gm/100ml 100 ML IV STA (05:38)
[2024-01-31] MEDS ORDERED: AMOX-580 PO (05:55)
[2024-01-31] MEDS ORDERED: HYDR-3965 PO (05:55)
[2024-01-31] MEDS ORDERED: SULF1TAB49 PO (05:55)
[2024-01-31 06:59] VITALS: BP 118/63; PULSE 68; RESP 16; TEMP 98.9; O2SAT 98
== END 2024-01-31 07:01 | disposition home or self-care (01) ==
LOC: ER 21:19
DX: K59.00 Constipation, unspecified (principal); K57.92 Diverticulitis of intestine, part unspecified, without perforation or abscess without bleeding; R10.9 Unspecified abdominal pain; I10 Essential (primary) hypertension; E11.9 Type 2 diabetes mellitus without complications; Z79.1 Long term (current) use of non-steroidal anti-inflammatories (NSAID); Z79.899 Other long term (current) drug therapy; Z90.710 Acquired absence of both cervix and uterus
CPT/HCPCS: 36415; 74176; 80053; 81003; 83690; 85025; 96365; 99285; J2543